=== PATIENT | male | born 1965 | race Hispanic/Latino ===

== ENCOUNTER 2025-07-10 21:12 | Emergency (ER) | payer BC, MEDICAID ==
[~2025-07-10] VITALS: Ht 172.7 cm; Wt 127.0 kg
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
--- NOTE | 2025-07-10 21:32 | NUR ---
PATIENT TAKEN TO CT AT THIS TIME
[2025-07-10 21:37] LABS: NUCLEATED RED BLOOD CELLS 0.0 % (0.0-0.19); PLATELET COUNT (AUTO) 323.0 K/uL (130-400); RED BLOOD CELL COUNT(AUTO) 5.22 MIL/uL (4.50-6.20); RED CELL DISTRIBUTION WIDTH 14.3 % (11.0-15.5); WHITE BLOOD COUNT (AUTO) 18.5 K/uL (4.8-10.8)
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
[2025-07-10 21:50] LABS: CREATININE 1.5 mg/dL (0.5-1.3); GLOMERULAR FILTR. RATE CALC 52.0 mL/min (>90); GLUCOSE,RANDOM 129.0 mg/dL (70-105); SODIUM SERUM 138.0 mmol/L (136-145); UREA NITROGEN, BLOOD 16.0 mg/dL (7-18)
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
[2025-07-10 22:08] LABS: INR 1.01 (0.85-1.15)
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
[2025-07-10] MEDS: MANNITOL 20% 500 ML IV.SOLN IV ONE (22:15)
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
--- NOTE | 2025-07-10 22:34 | NUR ---
[facility] CONTACTED FOR TRANSFER TO [facility]
[2025-07-10 23:00] VITALS: BP 137/79; PULSE 109; RESP 27; TEMP 97.8; O2SAT 95
== END 2025-07-10 23:00 | disposition short-term general hospital (02) ==
LOC: EDH 21:12
DX: S06.5X0A Traumatic subdural hemorrhage without loss of consciousness, initial encounter (principal); S02.2XXA Fracture of nasal bones, initial encounter for closed fracture; I16.1 Hypertensive emergency; Y04.2XXA Assault by strike against or bumped into by another person, initial encounter; Y93.89 Activity, other specified; Y92.89 Other specified places as the place of occurrence of the external cause; Y99.8 Other external cause status
CPT/HCPCS: 99291; 70450; 96365; 96375 ×3; 80048; 85027; 85610; 85730; 36415; 71100; 72125; 70486; 71045; J1100; J1953; J2270; J3490 ×3; J2405; J7050; J3480